=== PATIENT | female | born 1980 | race Caucasian/White ===

== ENCOUNTER 2018-12-20 19:15 | Inpatient (IN) | payer OTHER ==
[~2018-12-20] VITALS: Ht 165.1 cm; Wt 105.5 kg
--- NOTE | 2018-12-20 19:15 | NUR ---
G4L1 at 36 weeks and 6 days arrives to unit ambulatory with complaint of spontaneous rupture of membranes. Pt states she felt a big gush of fluid around 1700 at home. On arrival pt appears to be grossly ruptured. Pt reports feeling regular contractions but does not say they are painful. States they feel like a cramp and last about 10 seconds. Pt denies bleeding and is having good movement. Pt denies headaches, blurry vision, or RUQ pain. EFM and toco explained and applied. Vital signs obtained. Admission assessment started. 1930 - positive amnitrace. SVE 2/50/high, could not feel presenting part. Clear fluid noted on exam.
[2018-12-20 19:45] VITALS: BP 126/87; PULSE 88
--- NOTE | 2018-12-20 19:50 | NUR ---
Dr. Santana at bedside. SVE performed, /high Dr. Santana unable to feel presenting part. Bedside ultrasound performed, vertex position confirmed. Plan of care reviewed with patient and spouse. All questions answered. Per Dr. Santana if no cervical change in a few hours, will augment with pitocin per protocol.
[2018-12-20 20:21] LABS: BASO % 0.5 % (0.0-2.0); EOS # 0.1 (0.0-0.7); EOS % 0.7 % (0-4.0); GRAN % 69.6 % (42.2-75.2); HEMOGLOBIN 11.4 g/dl (12.5-16.0); LYMPH # 1.9 (1.2-3.4); LYMPH % 21.9 % (20.0-51.0); MEAN CELL VOLUME 85 fl (80.0-100.0); MEAN CORPUSCULAR HEMOGLOBIN 28 pg (27.0-31.0); MEAN CORPUSCULAR HGB CONC 33 g/dl (33.0-37.0); MEAN PLATELET VOLUME 10.8 fl (7.4-10.4); MONO # 0.6 (0.1-0.6); MONO % 6.4 % (1.7-9.3); PLATELET COUNT 200 K/mm3 (130-400); RED BLOOD COUNT 4.03 M/mm3 (4.10-5.30); REDCELL DISTRIBUTION WIDTH-CV 14.1 % (11.5-14.5)
[2018-12-20 20:25] LABS: HEMATOCRIT 34.3 % (37.0-47.0)
[2018-12-20] MEDS ORDERED: PRENATAL MVI (20:27)
[2018-12-20] MEDS ORDERED: VALTREX1 GM PO (20:28)
[2018-12-20 20:30] VITALS: BP 122/89; PULSE 91; TEMP 98.7
--- NOTE | 2018-12-20 20:30 | NUR ---
Monitors removed so pt may ambulate. Category 1 tracing prior to being removed.
[2018-12-20 22:00] VITALS: BP 137/83; PULSE 77
[2018-12-20 22:30] VITALS: BP 133/81; PULSE 77
[2018-12-21] VITALS (61 sets, daily range): BP systolic 88–138; BP diastolic 53–86; PULSE 71–129; TEMP 97.3–98.4
--- NOTE | 2018-12-21 04:00 | NUR ---
2229- See Physician Notification. EFM and TOCO removed for patient ambulation. 2354- Patient reports pink-tinged drainage during voids. Amniotic fluid appears pink-tinged on towel. 0000- SVE /High and unchanged from previous SVE by . EFM and TOCO on and tracing. Pitocin initiated 2 mU per protocol. 0- SVE /-3 by JOLIE Swanson.
--- NOTE | 2018-12-21 08:45 | NUR ---
at patient bedside, discuss plan of care. Patient agreeable to plan of care, plan for starting of antibiotics due to PROM. Plan for epidural, encourage questions or concerns. FHR strip reviewed by . SVE completed by noted of 2-/-3. Patient tolerated check. will continue to monitor.
--- NOTE | 2018-12-21 08:45 | NUR ---
at patient bedside.
--- NOTE | 2018-12-21 09:45 | NUR ---
Patient request epidural at this time. Jacob Adam BRIDAL GOWN FITTER notified.
--- NOTE | 2018-12-21 10:00 | NUR ---
Patient up to edge of bed for placement of epidural. Jacob Adam MAIL MESSENGER into room for placement of epidural. Patient breathing through contractions. Pulse ox in place for tracing. 1007- Single dose given, patient tolerated well. Intermittent tracing of FHT's with patient in current position, nurse remains in room at bedside.
--- NOTE | 2018-12-21 11:00 | NUR ---
Patient resting comfortably in bed. 1049- noted lower blood pressure post epidural placement. 1 dose ephiderine given with bolus fluid initiated. Pit increased per protocol. Patient reports feeling slightly light headed. Nurse remains at patient bedside 1055- x1 dose ephederine given for blood pressure. nurse remains at patient bedside will continue to monitor.
--- NOTE | 2018-12-21 13:03 | NUR ---
1250- at patient bedside for SVE. Noted complete and ready for delivery. Nursery RN notified. Patient prepped for delivery. Epidural shut off per order of due to patient numbness. 1255- PAtient begins to push with contractions. 1303- Delivery of viable female . Nuchal cord x1. produced cry upon delivery and to care of nursery RN. 1305- Cord clamped by and cut by father of . 1309- Delivery of placenta, pitocin started per protcol. Repair of second degree perineal lac completed by patient tolerated well. Fundal massage performed as indicated. 1319- 1 dose methergine Im given per order of for increased bleeding, Will continue to monitor with fundal massage.
[2018-12-22 07:30] VITALS: BP 125/92; PULSE 83; TEMP 98.1
[2018-12-22] MEDS ORDERED: IBU600 MG PO (09:01)
[2018-12-22 16:45] VITALS: BP 112/82; PULSE 88; TEMP 98.1
[2018-12-22 20:30] VITALS: BP 121/85; PULSE 88; TEMP 97.8
[2018-12-23 08:30] VITALS: BP 119/80; PULSE 77; TEMP 97.8
--- NOTE | 2018-12-23 09:28 | NUR ---
Initial visit; Family thanked Watch Repair Person for offering congratulations and God's blessings for the of their daughter. Watch Repair Person thanked them for choosing [facility].
== END 2018-12-23 17:00 | disposition home or self-care (01) | DRG 807 ==
LOC: LDRO 19:15 → OB 19:38 → LDR 19:38 → OB 12-21 15:26 → LDRO 01-11 12:45
PROVIDERS: ADMIT Obstetrics & Gynecology
PROC: 10E0XZZ Delivery of Products of Conception, External Approach (ICD-10-PCS; principal; 2018-12-20)
PROC: 0KQM0ZZ Repair Perineum Muscle, Open Approach (ICD-10-PCS; 2018-12-20)
DX: O42.013 Preterm premature rupture of membranes, onset of labor within 24 hours of rupture, third trimester (principal); Z37.0 Single live birth; Z3A.36 36 weeks gestation of pregnancy; O69.81X0 Labor and delivery complicated by cord around neck, without compression, not applicable or unspecified; O70.1 Second degree perineal laceration during delivery
CPT/HCPCS: J0290; J1580; J2210; J2590; J2795; J7120

== ENCOUNTER → 2019-01-14 | Outpatient (CLI) | payer OTHER ==
[~2019-01-14] MED LIST: IBU600 MG PO; PRENATAL MVI; VALTREX1 GM PO
== END ==
LOC: COL.RAD 11:01
DX: K81.9 Cholecystitis, unspecified (principal)

== ENCOUNTER 2019-03-18 10:39 | Day surgery (SDC) | payer OTHER ==
[~2019-03-18] VITALS: Ht 168.9 cm; Wt 93.4 kg
[2019-03-18 11:20] VITALS: BP 127/82; PULSE 69; TEMP 97.4
--- NOTE | 2019-03-18 11:28 | NUR ---
TO RM AT 1047- CALL LIGHT IN REACH AT BEDSIDE
[2019-03-18] MEDS ORDERED: IBU600 MG PO (13:46)
[2019-03-18] MEDS ORDERED: COLACE 100100 MG/CAP PO (13:47)
[2019-03-18] MEDS ORDERED: NORCO 325 MG-51 TAB PO (13:48)
[2019-03-18 14:20] VITALS: BP 118/79; PULSE 86; TEMP 97.1
--- NOTE | 2019-03-18 14:20 | NUR ---
TO RM 6 PER CART FROM PACU. ALERT ORIENTED X3, TALKING TO STAFF. C/O PAIN 4/10 AND DENIES PAIN MED AT THIS TIME. MONAE SET OVER INCISION SITES. SEVERAL BLANKETS OVER PATIENT. RECEIVED TAP WATER AND TAKING SIPS.
[2019-03-18 14:35] VITALS: BP 116/73; PULSE 67
--- NOTE | 2019-03-18 14:35 | NUR ---
RESTING QUIETLY AND TONTINUES TO TAKE A FEW SIPS AT TIME.
[2019-03-18 14:50] VITALS: BP 116/74; PULSE 65
[2019-03-18 15:05] VITALS: BP 118/78; PULSE 63
--- NOTE | 2019-03-18 15:05 | NUR ---
RECEIVED NORCO 5MG - PAIN 03/09.
--- NOTE | 2019-03-18 15:30 | NUR ---
RECEIVED DISCHARGE INSTRUCTIONS AND VERBALIZED UNDERSTANDING. DISCONTINUED IV AND INT- CATHETER INTACT.
--- NOTE | 2019-03-18 15:30 | NUR ---
ATE 100% AND TOLERATED WELL UP AMBULATED TO BATHROOM WITH ASSIST. VOIDED AND TOLERATED WELL AND AMBULATED BACK TO BED.
--- NOTE | 2019-03-18 15:40 | NUR ---
DISCHARGED PER WC BY NURSING STAFF TO PRIVATE CAR IN CARE OF - [facility].
== END 2019-03-18 16:03 | disposition home or self-care (01) ==
LOC: SDCO 10:39
DX: K80.10 Calculus of gallbladder with chronic cholecystitis without obstruction (principal); Z87.442 Personal history of urinary calculi
CPT/HCPCS: J1100; J1885; J2405; J2704; J2765; J3010; J7120; Q9967